=== PATIENT | female | born 1950 | race Caucasian/White ===

== ENCOUNTER 2023-07-12 07:17 | Inpatient (IN) | payer MEDICARE ==
--- NOTE | 2023-07-12 07:56 | ED ---
General Adult HPI - General Chief complaint: Shortness of Breath Stated complaint: SOB Time Seen by Provider: 07/12/23 07:19 Source: patient, EMS Mode of arrival: EMS Limitations: no limitations - History of Present Illness Initial comments: Dictation was produced using Sqwiggle dictation software. please excuse any grammatical, word or spelling errors. Chief Complaint: 60-year-old female with dyspnea History of Present Illness: Patient is a 60-year-old female she has past medical history of A-fib, COPD hypertension. Patient went to bed in her usual state of health last night. She woke up at 2 in the morning with significant dyspnea. States that she has history of COPD. She denies any coughing runny nose or sore throat. Denies any obvious sick contacts. Patient denies any swelling of her legs. She is to take Lasix. She does not take Lasix anymore. She does not put any history of heart failure. She takes multiple cardiac medications. Patient is also on anticoagulation medication for paroxysmal A-fib. The ROS documented in this emergency department record has been reviewed and confirmed by me. Those systems with pertinent positive or negative responses have been documented in the HPI. All other systems are other negative and/or noncontributory. - Related Data Allergies Allergy/AdvReac Type Severity Reaction Status Date / Time No Known Allergies Allergy Verified 07/12/23 07:48 Review of Systems ROS Statement: Those systems with pertinent positive or pertinent negative responses have been documented in the HPI. ROS Other: All systems not noted in ROS Statement are negative. Past Medical History Past Medical History: Atrial Fibrillation, COPD, Hypertension History of Any Multi-Drug Resistant Organisms: None Reported Past Surgical History: Breast Surgery, Cholecystectomy, Hysterectomy Additional Past Surgical History / Comment(s): Breast biopsy Past Psychological History: No Psychological Hx Reported Smoking Status: Former smoker Past Alcohol Use History: Occasional Past Drug Use History: None Reported General Exam - General Exam Comments Initial Comments: PHYSICAL EXAM: General Impression: Alert and oriented x3, not in acute distress HEENT: Normocephalic atraumatic, extra-ocular movements intact, pupils equal and reactive to light bilaterally, mucous membranes moist. Cardiovascular: Heart regular rate and rhythm Chest: Able to complete full sentences, no retractions, no tachypnea, clear to auscultation bilaterally Abdomen: abdomen soft, non-tender, non-distended, no organomegaly Musculoskeletal: Pulses present and equal in all extremities, no peripheral edema Motor: no focal deficits noted Neurological: CN II-XII grossly intact, no focal motor or sensory deficits noted Skin: Intact with no visualized rashes Psych: Normal affect and mood Limitations: no limitations Course Vital Signs 07/12/23 07/12/23 07/12/23 07:32 07:38 08:11 Temperature 98.4 F Pulse Rate 55 L 44 L Respiratory 18 20 20 Rate Blood Pressure 205/85 204/87 O2 Sat by Pulse 94 L 94 L Oximetry 07/12/23 09:27 Temperature Pulse Rate 62 Respiratory 18 Rate Blood Pressure 151/134 O2 Sat by Pulse 92 L Oximetry EKG Findings - EKG Comments: EKG Findings:: My EKG interpretation: Ventricular rate 43, sinus bradycardia,. 176, cures 93, QTc 432. No SC prolongation, no QTC prolongation, no ST or T-wave changes noted. Overall this EKG shows bradycardia Medical Decision Making - Medical Decision Making Was pt. sent in by a medical professional or institution (, PA, MARKETING COMMUNICATION MANAGER, urgent care, hospital, or residential...) When possible be specific @ -No Did you speak to anyone other than the patient for history (EMS, parent, family, police, friend...)? What history was obtained from this source @ -No Did you review nursing and triage notes (agree or disagree)? Why? @ -I reviewed and agree with nursing and triage notes Were old charts reviewed (outside hosp., previous admission, EMS record, old EKG, old radiological studies, urgent care reports/EKG's, residential records)? Report findings @ -No old charts were reviewed Differential Diagnosis (chest pain, altered mental status, abdominal pain women, abdominal pain men, vaginal bleeding, musculoskeletal, weakness, fever, dyspnea, syncope, headache, dizziness, GI bleed, back pain, seizure, CVA, palpatations, mental health)? @ -Differential Dyspnea: Coronary syndrome, arrhythmia, tamponade, asthma, COPD, pulmonary embolism, pneumonia, pneumothorax, pulmonary effusion, anaphylaxis, diabetic ketoacidosis, flailed chest, pulmonary contusion, diaphragmatic rupture, anemia, neuromuscular, this is not meant to be an all-inclusive list. EKG interpreted by me (3pts min.). @ -See above X-rays interpreted by me (1pt min.). @ -X-ray of the chest shows pulmonary vascular congestion CT interpreted by me (1pt min.). @ -None done U/S interpreted by me (1pt. min.). @ -None done What testing was considered but not performed or refused? (CT, X-rays, U/S, labs)? Why? @ -None What meds were considered but not given or refused? Why? @ -None Did you discuss the management of the patient with other professionals (professionals i.e. , PA, MARKETING COMMUNICATION MANAGER, lab, RT, psych nurse, director social, polisher sand, teacher, project control officer, manager case)? Give summary @ -Case discussed with hospitalist for admission Was smoking cessation discussed for >3mins.? @ -No Was critical care preformed (if so, how long)? @ -No Were there social determinants of health that impacted care today? How? (Homelessness, low income, unemployed, alcoholism, drug addiction, transportation, low edu. Level, literacy, decrease access to med. care, longterm, rehab)? @ -No Was there de-escalation of care discussed even if they declined (Discuss DNR or withdrawal of care, Hospice)? DNR status @ -No What co-morbidities impacted this encounter? (DM, HTN, Smoking, COPD, CAD, Cancer, CVA, ARF, Chemo, Hep., AIDS, mental health diagnosis, sleep apnea, morbid obesity)? @ -None Was patient admitted / discharged? Hospital course, mention meds given and route, prescriptions, significant lab abnormalities, going to OR and other pertinent info. @ -72-year-old female presents emergency department for chief complaint of dyspnea. Symptoms are acute. Vital signs shows bradycardia 55, O2 sat of 94. She is hypertensive 205/85. She has evidence of pulmonary vascular congestion on her x-ray. Patient given s nitroglycerin. She is also given 40 mg of IV Lasix. Patient be admitted with consultation to cardiology Undiagnosed new problem with uncertain prognosis? @ -No Drug Therapy requiring intensive monitoring for toxicity (Heparin, Nitro, Insulin, Cardizem)? @ -No Were any procedures done? @ -No Diagnosis/symptom? Acute, or Chronic, or Acute on Chronic? Uncomplicated (without systemic symptoms) or Complicated (systemic symptoms)? @ -Congestive heart failure, bradycardia Side effects of treatment? @ -No Exacerbation, Progression, or Severe Exacerbation? @ -No Poses a threat to life or bodily function? How? (Chest pain, [place], [place], pneumonia, PE, COPD, DKA, ARF, appy, cholecystitis, CVA, Diverticulitis, Homicidal, Suicidal, threat to staff... and all critical care pts) @ -yes - Lab Data Result diagrams: 07/12/23 07:58 07/12/23 07:58 Lab Results 07/12/23 07/12/23 07/12/23 Range/Units 07:58 07:58 07:58 WBC 4.1 (3.8-10.6) k/uL RBC 3.82 (3.80-5.40) m/uL Hgb 12.1 (11.4-16.0) gm/dL Hct 36.4 (34.0-46.0) % MCV 95.2 (80.0-100.0) fL MCH 31.6 (25.0-35.0) pg MCHC 33.2 (31.0-37.0) g/dL RDW 13.8 (11.5-15.5) % Plt Count 136 L (150-450) k/uL MPV 11.1 Neutrophils % 72 % Lymphocytes % 17 % Monocytes % 8 % Eosinophils % 1 % Basophils % 0 % Neutrophils # 2.9 (1.3-7.7) k/uL Lymphocytes # 0.7 L (1.0-4.8) k/uL Monocytes # 0.3 (0-1.0) k/uL Eosinophils # 0.1 (0-0.7) k/uL Basophils # 0.0 (0-0.2) k/uL PT 10.5 (10.0-12.5) sec INR 0.9 (<1.2) APTT 23.5 (22.0-30.0) sec Sodium 140 (137-145) mmol/L Potassium 4.0 (3.5-5.1) mmol/L Chloride 109 H (98-107) mmol/L Carbon Dioxide 25 (22-30) mmol/L Anion Gap 6 mmol/L BUN 14 (7-17) mg/dL Creatinine 0.64 (0.52-1.04) mg/dL Est GFR (CKD-EPI)AfAm >90 (>60 ml/min/1.73 sqM) Est GFR (CKD-EPI)NonAf >90 (>60 ml/min/1.73 sqM) Glucose 128 H (74-99) mg/dL Plasma Lactic Acid Isidro (0.7-2.0) mmol/L Calcium 8.7 (8.4-10.2) mg/dL Magnesium 1.8 (1.6-2.3) mg/dL Troponin I (0.000-0.034) ng/mL 07/12/23 07/12/23 Range/Units 07:58 07:58 WBC (3.8-10.6) k/uL RBC (3.80-5.40) m/uL Hgb (11.4-16.0) gm/dL Hct (34.0-46.0) % MCV (80.0-100.0) fL MCH (25.0-35.0) pg MCHC (31.0-37.0) g/dL RDW (11.5-15.5) % Plt Count (150-450) k/uL MPV Neutrophils % % Lymphocytes % % Monocytes % % Eosinophils % % Basophils % % Neutrophils # (1.3-7.7) k/uL Lymphocytes # (1.0-4.8) k/uL Monocytes # (0-1.0) k/uL Eosinophils # (0-0.7) k/uL Basophils # (0-0.2) k/uL PT (10.0-12.5) sec INR (<1.2) APTT (22.0-30.0) sec Sodium (137-145) mmol/L Potassium (3.5-5.1) mmol/L Chloride (98-107) mmol/L Carbon Dioxide (22-30) mmol/L Anion Gap mmol/L BUN (7-17) mg/dL Creatinine (0.52-1.04) mg/dL Est GFR (CKD-EPI)AfAm (>60 ml/min/1.73 sqM) Est GFR (CKD-EPI)NonAf (>60 ml/min/1.73 sqM) Glucose (74-99) mg/dL Plasma Lactic Acid Isidro 1.2 (0.7-2.0) mmol/L Calcium (8.4-10.2) mg/dL Magnesium (1.6-2.3) mg/dL Troponin I <0.012 (0.000-0.034) ng/mL Disposition Clinical Impression: Congestive heart failure Disposition: ADMITTED IP TO THIS HOSP Condition: Fair Referrals: Fernando Escobedo MD [Primary Care Provider] - 1-2 days Decision Time: 09:31
[2023-07-12 08:19] LABS: African American GFR (CKD) >90 (>60 ml/min/1.73 sqM); Anion Gap 6 mmol/L; Blood Urea Nitrogen 14 mg/dL (7-17); Calcium 8.7 mg/dL (8.4-10.2); Carbon Dioxide 25 mmol/L (22-30); Chloride 109 mmol/L (98-107); Glucose 128 mg/dL (74-99); Magnesium 1.8 mg/dL (1.6-2.3); Non-African American GFR(CKD) >90 (>60 ml/min/1.73 sqM); Sodium 140 mmol/L (137-145)
[2023-07-12 08:24] LABS: Basophils % (A) 0 %; Eosinophils # (A) 0.1 k/uL (0-0.7); Eosinophils % (A) 1 %; HCT 36.4 % (34.0-46.0); HGB 12.1 gm/dL (11.4-16.0); Lymphocytes # (A) 0.7 k/uL (1.0-4.8); Lymphocytes % (A) 17 %; MCH 31.6 pg (25.0-35.0); MCHC 33.2 g/dL (31.0-37.0); MCV 95.2 fL (80.0-100.0); Mean Platelet Volume 11.1; Monocytes # (A) 0.3 k/uL (0-1.0); Monocytes % (A) 8 %; Neutrophils # (A) 2.9 k/uL (1.3-7.7); Neutrophils % (A) 72 %; Platelet Count 136 k/uL (150-450); RBC 3.82 m/uL (3.80-5.40); RDW 13.8 % (11.5-15.5); WBC 4.1 k/uL (3.8-10.6)
[2023-07-12 08:29] LABS: INR 0.9 (<1.2); Partial Thromboplastin Time 23.5 sec (22.0-30.0); Prothrombin Time 10.5 sec (10.0-12.5)
--- NOTE | 2023-07-12 08:49 | XR ---
EXAMINATION TYPE: XR chest 2V DATE OF EXAM: 07/12/2023 COMPARISON: None INDICATION: Dyspnea short of breath TECHNIQUE: Frontal and lateral views of the chest are obtained. FINDINGS: The heart size is normal. The pulmonary vasculature is somewhat prominent. Diffuse increased central lung markings are present. Increased scattered lung markings are through th e lung bases. Clinical consideration for pulmonary edema and volume overload is recommended. IMPRESSION: 1. Scattered increased lung markings with some prominence of pulmonary vascular markings. Consider vo lume overload. Follow-up is recommended.
[2023-07-12] MEDS ORDERED: NALOXONE 0.4 MG/ML 1 ML VIAL IV PRN (09:20)
[2023-07-12] MEDS: NITROGLYCERIN SL TABS 0.4 MG TAB SUBLINGUAL STA (09:25)
[2023-07-12] MEDS: FUROSEMIDE 10 MG/ML 4 ML VIAL IV STA (09:37)
[2023-07-12] MEDS: APIXABAN 5 MG TAB PO SCH (13:21)
[2023-07-12] MEDS: lisinopriL 20 MG TAB PO SCH (13:21)
[2023-07-12] MEDS: ASPIRIN 81 MG PO SCH (13:21)
[2023-07-12] MEDS: METOPROLOL SUCCINATE (ER) 50 MG TAB.ER.24H PO SCH (13:22)
--- NOTE | 2023-07-12 14:12 | P.CRDCN ---
History of Present Illness History of present illness: HISTORY OF PRESENT ILLNESS: This is a 72-year-old female with a past medical history significant for atrial fibrillation, hypertension, COPD, former nicotine dependence, and cardioversion x 2. Patient follows with a networks software consultant out of [place] but is unable to recall her name at the time of evaluation. We have been asked to see the patient in consultation for tachycardia and shortness of breath. Patient examined at the bedside in the emergency room. Patient states yesterday around 3:00 in the morning she began to feel short of breath. She states her shortness of breath felt similar to when she had issues with atrial fibrillation. She also reports feeling more tired recently. She denied any chest pain or pressure. She denied any worsening lower extremity edema. She denies waking up in the middle of the night with shortness of breath. She denies any dizziness or syncope. Patient was found to have significantly elevated blood pressures upon admission. She states that she checks her blood pressure at home and it is usually in the 130s. She states that she does know what her heart rate usually runs. Patient was found to be in sinus mechanism with a heart rate in the 50s. She is prescribed metoprolol succinate 100 mg on an outpatient basis. Patient denies any history of congestive heart failure, coronary artery disease, or cardiomyopathy to her knowledge. She states that she underwent a stress test last year which was normal to her recollection. DIAGNOSTICS: - EKG reveals sinus bradycardia with no signs of acute ischemia - Chest xray scattered increased lung markings with some prominence of pulmonary vascular markings. Consider fluid overload. - Laboratory data: WBC 4.1. Hemoglobin 12.1. Platelet count 136. Sodium 140. Potassium 4.0. BUN 14. Creatinine 0.64. Lactic acid 1.2. Troponin negative x 1. proBNP 981. - Current home cardiac medications include lisinopril 20 mg twice a day, Lasix 20 mg daily, aspirin 81 mg daily, metoprolol succinate 100 mg daily, and Eliquis 5 mg twice a day REVIEW OF SYSTEMS: At the time of my exam: CONSTITUTIONAL: Denies fever or chills. HEENT: Denies blurred vision, vision changes, or eye pain. Denies hemoptysis CARDIOVASCULAR: Denies chest pain. Denies orthopnea. Denies PND. Denies palpitat ions RESPIRATORY: Denies shortness of breath. GASTROINTESTINAL: Denies abdominal pain. Denies nausea or vomiting. HEMATOLOGIC: Denies bleeding disorders. GENITOURINARY: Denies any blood in urine. SKIN: Denies pruitis. Denies rash. PHYSICAL EXAM: VITAL SIGNS: Reviewed. GENERAL: Well-developed in no acute distress. HEENT: Head is normocephalic. Pupils are equal, round. Sclerae anicteric. Mucous membranes of the mouth are moist. Neck supple. No JVD or thyromegaly LUNGS: Respirations even and unlabored. Lungs essentially clear to auscultation bilaterally. HEART: Bradycardic. Regular rate and rhythm. S1 and S2 heard. ABDOMEN: Soft. Nondistended. Nontender. EXTREMITIES: Normal range of motion. No clubbing or cyanosis. Peripheral pulses intact. Trace bilateral lower extremity edema NEUROLOGIC: Awake and alert. Oriented x 3. ASSESSMENT: Shortness of breath Acute heart failure, suspect with preserved EF, echo pending Sinus bradycardia Paroxysmal atrial fibrillation Hypertension COPD History of cardioversion x 2, Former nicotine dependence, patient quit smoking in 2004 Obesity: BMI 34.0 PLAN: Obtain 2D echo to assess cardiac structure and function Resume home cardiac medications Continue metoprolol but decrease dose to 50 mg daily Continue telemetry monitoring Add Lasix IV 40 mg twice a day Daily weights, accurate intake and output, and monitoring of kidney function Will consider addition of Farxiga tomorrow Obtain records from patient's primary networks software consultant out of [facility] Further recommendations pending patient course Nurse practitioner note has been reviewed by physician. Signing provider agrees with the documented findings, assessment, and plan of care documented by VERTICAL MILL OPERATOR as a scribe. Past Medical History Past Medical History: Atrial Fibrillation, COPD, Hypertension History of Any Multi-Drug Resistant Organisms: None Reported Past Surgical History: Breast Surgery, Cholecystectomy, Hysterectomy Additional Past Surgical History / Comment(s): Breast biopsy Past Psychological History: No Psychological Hx Reported Smoking Status: Former smoker Past Alcohol Use History: Occasional Past Drug Use History: None Reported Medications and Allergies Home Medications Medication Instructions Recorded Confirmed Type Apixaban [Eliquis] 5 mg PO BID 07/12/23 07/12/23 History Aspirin EC [Ecotrin Low Dose] 81 mg PO DAILY 07/12/23 07/12/23 History Cholecalciferol [Vitamin D3 (25 25 mcg PO DAILY 07/12/23 07/12/23 History Mcg = 1000 Iu)] Famotidine [Pepcid] 20 mg PO BID 07/12/23 07/12/23 History Fluticasone/Umeclidin/Vilanter 1 puff INHALATION RT-DAILY 07/12/23 07/12/23 History [Trelegy Ellipta 100-62.5-25] Furosemide [Lasix] 20 mg PO DAILY 07/12/23 07/12/23 History Metoprolol Succinate (ER) [Toprol 100 mg PO DAILY 07/12/23 07/12/23 History Xl] Milk Thistle 150 mg PO DAILY 07/12/23 07/12/23 History Pantoprazole [Protonix] 40 mg PO DAILY 07/12/23 07/12/23 History Sertraline [Zoloft] 200 mg PO DAILY 07/12/23 07/12/23 History lisinopriL [Zestril] 20 mg PO BID 07/12/23 07/12/23 History Allergies Allergy/AdvReac Type Severity Reaction Status Date / Time No Known Allergies Allergy Verified 07/12/23 10:39 Physical Exam Vitals: Vital Signs Temp Pulse Resp BP Pulse Ox 07/12/23 10:43 46 L 18 159/83 94 L 07/12/23 09:27 62 18 151/134 92 L 07/12/23 08:11 44 L 20 204/87 94 L 07/12/23 07:38 20 07/12/23 07:32 98.4 F 55 L 18 205/85 94 L Intake and Output 07/11/23 07/12/23 07/12/23 22:59 06:59 14:59 Intake Total 355 Output Total 1300 Balance -945 Intake: Oral 355 Output: Urine 1300 Other: Weight 104.326 kg Results 07/12/23 07:58 07/12/23 07:58 Cardiac Enzymes 07/12/23 Range/Units 07:58 Troponin I <0.012 (0.000-0.034) ng/mL Coagulation 07/12/23 Range/Units 07:58 PT 10.5 (10.0-12.5) sec APTT 23.5 (22.0-30.0) sec CBC 07/12/23 Range/Units 07:58 WBC 4.1 (3.8-10.6) k/uL RBC 3.82 (3.80-5.40) m/uL Hgb 12.1 (11.4-16.0) gm/dL Hct 36.4 (34.0-46.0) % Plt Count 136 L (150-450) k/uL Comprehensive Metabolic Panel 07/12/23 Range/Units 07:58 Sodium 140 (137-145) mmol/L Potassium 4.0 (3.5-5.1) mmol/L Chloride 109 H (98-107) mmol/L Carbon Dioxide 25 (22-30) mmol/L BUN 14 (7-17) mg/dL Creatinine 0.64 (0.52-1.04) mg/dL Glucose 128 H (74-99) mg/dL Calcium 8.7 (8.4-10.2) mg/dL Current Medications Generic Name Dose Route Start Last Admin Trade Name Freq PRN Reason Stop Dose Admin Naloxone HCl 0.2 mg 07/12/23 09:20 Naloxone 0.4 Mg/Ml 1 Ml Vial IV Q2M PRN Opioid Reversal Intake and Output 07/11/23 07/12/23 07/12/23 22:59 06:59 14:59 Intake Total 355 Output Total 1300 Balance -945 Intake: Oral 355 Output: Urine 1300 Other: Weight 104.326 kg Patient Weight 07/13/23 06:59 Weight 104.326 kg 07/12/23 07:58 07/12/23 07:58
--- NOTE | 2023-07-12 17:20 | P.HPIM ---
History of Present Illness H&P Date: 07/12/23 Patient is a 72-year-old female with history of hypertension, COPD, atrial fibrillation presenting with shortness of breath. She claims that she has been having shortness of breath and orthopnea for almost a month. Most of her dyspnea is with exertion. She has not noticed any increase swelling in her legs. She does use 1 pillow at night as well as tries to lift her legs up at night. She denies any chest pain, palpitations, abdominal pain, nausea, vomiting, urinary or bowel complaints. She denies any fevers or chills, cough, recent travel history or sick contacts. She denies any smoking, occasional alcohol use, denies any illicit drug use. In the ED, temperature was 98.4, pulse 55, respiratory rate 18, blood pressure 205/85, saturating at 94% on room air. WBC 4.1, hemoglobin 12, platelet 136. Potassium 4, creatinine 0.64, lactate 1.2, troponin negative, proBNP 991. Chest x-ray independently interpreted, shows interstitial opacities. EKG independently interpreted, shows sinus bradycardia. Patient admitted for CHF exacerbation. Cardiology consulted. Pertinent positives and negatives as discussed in HPI, a complete review of systems was performed and all other systems are negative. Patient seen and examined at bedside. Vital signs reviewed General: nontoxic, no distress, appears at stated age, morbidly obese Derm: warm, dry Head: atraumatic, normocephalic, symmetric Eyes: EOMI, no lid lag, anicteric sclera, pupils equal round reactive to light ENT: Nose and ears atraumatic Neck: No thyromegaly, supple Mouth: no lip lesion, mucus membranes moist Cardiovascular: S1S2 reg, no murmur, no edema Lungs: Bilateral rales, no wheeze, no accessory muscle use Abdominal: soft, nontender to palpation, no guarding, no appreciable organomegaly Ext: no gross muscle atrophy, muscle strength muscle strength 5 out of 5 in all 4 extremities, no contractures Neuro: CN II-XII grossly intact Psych: Alert, oriented, appropriate affect Assessment/Plan: Active: Acute CHF exacerbation, unknown EF Hypertension, uncontrolled Sinus bradycardia - Cardiology note reviewed, echocardiogram pending, metoprolol dose decreased to 50 daily - Continue Lasix IV 40 twice daily, monitor renal function and electrolytes - Continue telemetry monitoring - On lisinopril 20 twice daily, room to go up on lisinopril -Intake and output, daily weight Chronic: Paroxysmal atrial fibrillation Depression COPD, not in exacerbation GERD The patient is admitted with an anticipated greater than 2 midnight stay as inpatient status for evaluation of CHF exacerbation. Surrogate decision-maker: Sibling CODE STATUS: Full code DVT prophylaxis: Eliquis Anticipated discharge date: Pending clinical course Anticipated discharge place: Pending clinical course A total of 55 minutes was spent on the care of this complex patient more than 50% of the time was spent in counseling and care coordination. Past Medical History Past Medical History: Atrial Fibrillation, COPD, Hypertension History of Any Multi-Drug Resistant Organisms: None Reported Past Surgical History: Breast Surgery, Cholecystectomy, Hysterectomy Additional Past Surgical History / Comment(s): Breast biopsy Past Psychological History: No Psychological Hx Reported Smoking Status: Former smoker Past Alcohol Use History: Occasional Past Drug Use History: None Reported Medications and Allergies Home Medications Medication Instructions Recorded Confirmed Type Apixaban [Eliquis] 5 mg PO BID 07/12/23 07/12/23 History Aspirin EC [Ecotrin Low Dose] 81 mg PO DAILY 07/12/23 07/12/23 History Cholecalciferol [Vitamin D3 (25 25 mcg PO DAILY 07/12/23 07/12/23 History Mcg = 1000 Iu)] Famotidine [Pepcid] 20 mg PO BID 07/12/23 07/12/23 History Fluticasone/Umeclidin/Vilanter 1 puff INHALATION RT-DAILY 07/12/23 07/12/23 History [Trelegy Ellipta 100-62.5-25] Furosemide [Lasix] 20 mg PO DAILY 07/12/23 07/12/23 History Metoprolol Succinate (ER) [Toprol 100 mg PO DAILY 07/12/23 07/12/23 History Xl] Milk Thistle 150 mg PO DAILY 07/12/23 07/12/23 History Pantoprazole [Protonix] 40 mg PO DAILY 07/12/23 07/12/23 History Sertraline [Zoloft] 200 mg PO DAILY 07/12/23 07/12/23 History lisinopriL [Zestril] 20 mg PO BID 07/12/23 07/12/23 History Allergies Allergy/AdvReac Type Severity Reaction Status Date / Time No Known Allergies Allergy Verified 07/12/23 10:39 Physical Exam Vitals: Vital Signs Temp Pulse Resp BP Pulse Ox 07/12/23 15:00 48 L 20 191/162 94 L 07/12/23 14:00 48 L 18 190/88 91 L 07/12/23 13:18 47 L 18 190/88 98 07/12/23 13:00 45 L 18 96 07/12/23 12:00 45 L 18 167/78 92 L 07/12/23 11:00 52 L 20 155/78 94 L 07/12/23 10:43 46 L 18 159/83 94 L 07/12/23 10:00 52 L 20 159/83 95 07/12/23 09:27 66 18 151/134 92 L 07/12/23 08:11 44 L 20 204/87 94 L 07/12/23 07:38 20 07/12/23 07:32 98.4 F 55 L 18 205/85 94 L Intake and Output 07/12/23 07/12/23 07/12/23 06:59 14:59 22:59 Intake Total 355 Output Total 1300 Balance -945 Intake: Oral 355 Output: Urine 1300 Other: Weight 104.326 kg Results CBC & Chem 7: 07/12/23 07:58 07/12/23 07:58 Labs: Abnormal Lab Results - Last 24 Hours (Table) 07/12/23 07/12/23 Range/Units 07:58 07:58 Plt Count 136 L (150-450) k/uL Lymphocytes # 0.7 L (1.0-4.8) k/uL Chloride 109 H (98-107) mmol/L Glucose 128 H (74-99) mg/dL
[2023-07-12] MEDS: FAMOTIDINE 20 MG TAB PO SCH (21:07)
[2023-07-12] MEDS: FUROSEMIDE 10 MG/ML 4 ML VIAL IV SCH (21:09)
--- NOTE | 2023-07-13 07:17 | CA ---
Transthoracic Echo Report Name: Lynn Mars Age: 72 Gender: F : 1950 Exam Date: 07/12/2023 14:59 Exam Location: [facility] Ht (in): 69 Wt (lb): 230 Ordering Physician: Carly Pereyra Attending/Referring Phys: [id number], Roddy Envelope Sealing Machine Operator Giselle Perera RDCS Procedure CPT: Indications: LV function, poss CHF, AF Cardiac Hx: Technical Quality: Technically difficult study Contrast 1: Definity Total Dose (mL): 2 Contrast 2: Total Dose (mL): MEASUREMENTS (Male / Female) Normal Values 2D ECHO LVOT Diameter 2.6 cm Aortic Root Diameter 3.0 cm LV Diastolic Volume MOD BP 107.2 cm??? 67 - 155 / 56 - 104 cm??? LV Systolic Volume MOD BP 35.8 cm??? 22 - 58 / 19 - 49 cm??? LV Ejection Fraction MOD BP 66.6 % >= 55 % LV Cardiac Index MOD BP 1496.5 cm???/min???m??? LV Diastolic Volume MOD 4C 108.0 cm??? LV Systolic Volume MOD 4C 32.9 cm??? LV Ejection Fraction MOD 4C 69.6 % LV Cardiac Index MOD 4C 1575.1 cm???/min???m??? LV Diastolic Length 4C 8.3 cm LV Systolic Length 4C 6.6 cm LV Diastolic Volume MOD 2C 107.4 cm??? LV Systolic Volume MOD 2C 37.2 cm??? LV Ejection Fraction MOD 2C 65.3 % LV Cardiac Index MOD 2C 1470.5 cm???/min???m??? LV Diastolic Length 2C 8.4 cm LV Systolic Length 2C 7.0 cm DOPPLER AV Peak Velocity 162.3 cm/s AV Peak Gradient 10.5 mmHg AV Mean Velocity 96.5 cm/s AV Mean Gradient 4.3 mmHg AV Velocity Time Integral 35.4 cm LVOT Peak Velocity 136.0 cm/s LVOT Peak Gradient 7.4 mmHg LVOT Velocity Time Integral 29.6 cm LVOT Stroke Volume 153.7 cm??? LVOT Stroke Volume Index 70.1 ml/m??? LVOT Cardiac Index 3221.8 cm???/min???m??? AV Area Cont Eq vti 4.3 cm??? AV Area Cont Eq pk 4.4 cm??? Mitral E Point Velocity 68.7 cm/s Mitral A Point Velocity 61.2 cm/s Mitral E to A Ratio 1.1 MV Deceleration Time 339.1 ms MV E' Velocity 4.9 cm/s Mitral E to MV E' Ratio 13.9 FINDINGS Left Ventricle Left ventricular ejection fraction is estimated at 60-65 %. Mildly increased left ventricular diastolic volume. No obvious regional wall motion abnormalities. Right Ventricle Right ventricle not well visualized. Unable to estimate the right ventricular systolic pressure. Right Atrium Right atrium not well visualized. Left Atrium Mild left atrial dilatation. Mitral Valve Structurally normal mitral valve. No evidence for mitral valve prolapse. No mitral stenosis. Trace mitral regurgitation. Aortic Valve Aortic valve not well visualized. No aortic valve stenosis or regurgitation. Tricuspid Valve Structurally normal tricuspid valve. No tricuspid stenosis. No tricuspid regurgitation. Pulmonic Valve Pulmonic valve not well visualized. No pulmonic stenosis. No pulmonic regurgitation. Pericardium No pericardial effusion. Aorta Aortic root and proximal ascending aorta not well visualized. CONCLUSIONS Technically difficult study for interpretation Normal LV systolic function Previewed by: Dr. Librado Troncoso MD (Electronically Signed) Final Date: 13 Jul 2023 07:16
[2023-07-13] MEDS: SYMBICORT 80-4.5 MCG INHALER INHALATION SCH (08:05)
[2023-07-13] MEDS: IPRATROPIUM 0.5 MG/2.5 ML NEBU INHALATION SCH (08:05)
[2023-07-13] MEDS: PANTOPRAZOLE 40 MG TABLET PO SCH (08:10)
[2023-07-13] MEDS: CHOLECALCIFEROL 25 MCG (1000 IU) TABLET PO SCH (08:11)
[2023-07-13] MEDS: SERTRALINE 100 MG TAB PO SCH (08:12)
[2023-07-13 08:26] LABS: African American GFR (CKD) >90 (>60 ml/min/1.73 sqM); Anion Gap 6 mmol/L; Blood Urea Nitrogen 14 mg/dL (7-17); Calcium 9.3 mg/dL (8.4-10.2); Carbon Dioxide 32 mmol/L (22-30); Chloride 103 mmol/L (98-107); Glucose 107 mg/dL (74-99); Non-African American GFR(CKD) 78 (>60 ml/min/1.73 sqM); Potassium 4.1 mmol/L (3.5-5.1); Sodium 141 mmol/L (137-145)
[2023-07-13] MEDS: FUROSEMIDE 40 MG TAB PO SCH (08:28)
[2023-07-13] MEDS: hydrALAZINE HCL 25 MG TAB PO SCH (08:58)
[2023-07-13] MEDS: DAPAGLIFLOZIN PROPANEDIOL 10 MG TABLET PO SCH (08:58)
[2023-07-13 09:15] LABS: HCT 41.5 % (34.0-46.0); HGB 13.6 gm/dL (11.4-16.0); MCH 31.8 pg (25.0-35.0); MCHC 32.7 g/dL (31.0-37.0); MCV 97.4 fL (80.0-100.0); Mean Platelet Volume 11.1; Platelet Count 152 k/uL (150-450); RBC 4.26 m/uL (3.80-5.40); RDW 13.7 % (11.5-15.5); WBC 4.5 k/uL (3.8-10.6)
--- NOTE | 2023-07-13 09:57 | P.PN ---
Subjective HISTORY OF PRESENT ILLNESS: This is a 72-year-old female with a past medical history significant for atrial fibrillation, hypertension, COPD, former nicotine dependence, and cardioversion x 2. Patient follows with a logging equipment mechanic out of [place] but is unable to recall her name at the time of evaluation. We have been asked to see the patient in consultation for tachycardia and shortness of breath. Patient examined at the bedside in the emergency room. Patient states yesterday around 3:00 in the morning she began to feel short of breath. She states her shortness of breath felt similar to when she had issues with atrial fibrillation. She also reports feeling more tired recently. She denied any chest pain or pressure. She denied any worsening lower extremity edema. She denies waking up in the middle of the night with shortness of breath. She denies any dizziness or syncope. Patient was found to have significantly elevated blood pressures upon admission. She states that she checks her blood pressure at home and it is usually in the 130s. She states that she does know what her heart rate usually runs. Patient was found to be in sinus mechanism with a heart rate in the 50s. She is prescribed metoprolol succinate 100 mg on an outpatient basis. Patient denies any history of congestive heart failure, coronary artery disease, or cardiomyopathy to her knowledge. She states that she underwent a stress test last year which was normal to her recollection. DIAGNOSTICS: - EKG reveals sinus bradycardia with no signs of acute ischemia - Chest xray scattered increased lung markings with some prominence of pulmonary vascular markings. Consider fluid overload. - Laboratory data: WBC 4.1. Hemoglobin 12.1. Platelet count 136. Sodium 140. Potassium 4.0. BUN 14. Creatinine 0.64. Lactic acid 1.2. Troponin negative x 1. proBNP 981. - Current home cardiac medications include lisinopril 20 mg twice a day, Lasix 20 mg daily, aspirin 81 mg daily, metoprolol succinate 100 mg daily, and Eliquis 5 mg twice a day 07/13/2023 Patient examined this morning. Patient remains in the emergency room. Patient states that she is feeling better today. She states that she slept well overnight. She reports improvement in her shortness of breath. She denies any chest pain or pressure. Patient's blood pressure has improved this morning although still slightly elevated. Bedside telemetry reveals sinus bradycardia with heart rate in the 50s. Patient's metoprolol dose was decreased yesterday to 50 mg daily. She denies any dizziness or lightheadedness. Echocardiogram completed revealing ejection fraction 60 to 65%, no obvious regional wall motion abnormalities, and trace MR PHYSICAL EXAM: VITAL SIGNS: Reviewed. GENERAL: Well-developed in no acute distress. HEENT: Head is normocephalic. Pupils are equal, round. Sclerae anicteric. Mucous membranes of the mouth are moist. Neck supple. No JVD or thyromegaly LUNGS: Respirations even and unlabored. Lungs essentially clear to auscultation bilaterally. HEART: Bradycardic. Regular rate and rhythm. S1 and S2 heard. ABDOMEN: Soft. Nondistended. Nontender. EXTREMITIES: Normal range of motion. No clubbing or cyanosis. Peripheral pulses intact. Trace bilateral lower extremity edema NEUROLOGIC: Awake and alert. Oriented x 3. ASSESSMENT: Shortness of breath Acute heart failure with preserved EF, 60 to 65% Sinus bradycardia Paroxysmal atrial fibrillation Hypertension COPD History of cardioversion x 2, Former nicotine dependence, patient quit smoking in 2004 Obesity: BMI 34.0 PLAN: Continue current dose of metoprolol. No indication for PPM at this time. Discontinue IV Lasix. Begin oral Lasix 40 mg daily Add hydralazine 25 mg twice a day for optimal blood pressure control Add Farxiga 10 mg daily Still awaiting records from patient's primary logging equipment mechanic out of [facility] Possible discharge home this afternoon versus tomorrow Further recommendations pending patient course Nurse practitioner note has been reviewed by physician. Signing provider agrees with the documented findings, assessment, and plan of care documented by BILINGUAL BRANCH MANAGER as a scribe. Objective - Vital Signs Vital signs: Vital Signs Temp 97.6 F 07/13/23 08:03 Pulse 45 L 07/13/23 08:03 Resp 16 07/13/23 08:03 BP 176/87 07/13/23 08:03 Pulse Ox 92 L 07/13/23 08:03 FiO2 Intake & Output 07/12/23 07/13/23 07/13/23 18:59 06:59 18:59 Intake Total 355 Output Total 1300 Balance -945 Weight 104.326 kg Intake: Oral 355 Output: Urine 1300 - Labs CBC & Chem 7: 07/13/23 06:42 05/01/24 06:42 Labs: Abnormal Lab Results - Last 24 Hours (Table) 07/13/23 Range/Units 06:42 Carbon Dioxide 32 H (22-30) mmol/L Glucose 107 H (74-99) mg/dL
--- NOTE | 2023-07-13 10:45 | P.PN ---
Subjective Progress Note Date: 07/13/23 Hospital course: Patient is a very pleasant 72-year-old female with a past medical history significant for atrial fibrillation, hypertension, COPD, former nicotine dependence, and cardioversion x 2. She presented to the hospital on 07/12/2023 secondary to shortness of breath. She underwent evaluation in the emergency department vital signs upon arrival show blood pressure 205/85, heart rate 55, respiratory rate 18, temp 98.4 F, and SpO2 of 94% on room air. EKG was completed showing sinus bradycardia at 43 bpm with no significant T wave or ST abnormalities upon personal review and interpretation. Chest x-ray reported scattered increased lung markings with prominence of pulmonary vascular congestion. Labs were completed and reviewed. CBC showing thrombocytopenia with platelet count of 136 otherwise normal findings. Coagulation profile normal findings. BMP revealing mild hyperchloremia with chloride of 109. Lactic acid normal findings at 1.2. Magnesium normal findings at 1.8. Troponin was negative at less than 0.012 and proBNP was 981. TSH normal findings at 2 .550. Patient admitted under our services with consultation to cardiology. Echocardiogram was completed showing a preserved EF of 60 to 65% with no significant valvular or structural abnormalities reported. Physical exam: Vital signs reviewed and stable. General: Nontoxic, no distress and appears stated age. Derm: Skin warm and dry, normal coloration for ethnicity. Head: Atraumatic, normocephalic and symmetric. Eyes: EOMs intact, no lid lag, and anicteric sclera Mouth: no lip lesions, mucus membranes moist Cardiovascular: regular rate and rhythm with normal S1S2, no murmur, positive posterior tibial pulses bilaterally, and cap refill < 2 seconds. Lungs: Respirations even, regular, and unlabored on room air. Lungs CTA bilaterally, no rhonchi, no rales, no wheezing, and no accessory muscle usage. Abdominal: soft, nontender to palpation, no guarding, no appreciable organomegaly Ext: ROM intact. No gross muscle atrophy, no edema, no contractures Neuro: Speech clear, face symmetrical and CN II-XII grossly intact with no noted focal neuro deficits Psych: Alert and oriented to person, place, time, and situation. Appropriate and pleasant affect. Assessment and Plan of Care: Acute diastolic CHF exacerbation Hypertension, uncontrolled Sinus bradycardia Paroxysmal atrial fibrillation - Cardiology following and decreased metoprolol dose to 50 daily and started patient on Farxiga. Awaiting records from primary performance improvement coordinator out of [place] and further recommendations forthcoming. - Echocardiogram was completed showing a preserved EF of 60 to 65% with no significant valvular or structural abnormalities reported. - Continue Lasix IV 40 mg daily, monitor renal function and electrolytes - Continue telemetry monitoring - Continue aspirin 81 mg daily, Eliquis 5 mg twice daily, Farxiga 10 mg daily, Lasix 40 mg daily, hydralazine 25 mg twice daily, lisinopril 20 mg twice daily, and metoprolol 50 mg daily. -Intake and output, daily weight Depression and anxiety Continue Zoloft 200 mg daily. COPD, not in exacerbation Continue Symbicort 80-4.5 mcg inhaler 2 puffs twice daily and Atrovent nebulizers 4 times daily GERD Continue GI prophylaxis with Protonix 40 mg daily. Data and imaging reviewed: Echocardiogram was completed showing a preserved EF of 60 to 65% with no significant valvular or structural abnormalities reported. Morning labs reviewed. CBC and BMP were unremarkable with exception of mild hypercarbia with bicarb of 32. Magnesium normal findings at 2.0. Vital signs reviewed. Blood pressure 176/87, heart rate 45, respiratory rate 16, temp 97.6 F, and SpO2 of 92% on room air. CODE STATUS: Full code DVT prophylaxis: Eliquis Anticipated discharge date: Pending clinical course likely tomorrow Anticipated discharge place: Home Patient was seen independently by Nurse Pracitioner. This document was prepared using [employer] dictation software. Please allow for errors in plastic boat buffer, while rare they do occur. Sreekanth Rincon NP rendered care for this patient independently, reviewed the findings and plan as documented in the note above. I did not physically speak with or examine the patient on this date. Objective - Vital Signs Vital signs: Vital Signs Temp 97.6 F 07/13/23 08:03 Pulse 45 L 07/13/23 08:03 Resp 16 07/13/23 08:03 BP 176/87 07/13/23 08:03 Pulse Ox 92 L 07/13/23 08:03 FiO2 Intake & Output 07/12/23 07/13/23 07/13/23 18:59 06:59 18:59 Intake Total 355 Output Total 1300 Balance -945 Weight 104.326 kg Intake: Oral 355 Output: Urine 1300 - Labs CBC & Chem 7: 07/13/23 06:42 05/01/24 06:42 Labs: Abnormal Lab Results - Last 24 Hours (Table) 07/13/23 Range/Units 06:42 Carbon Dioxide 32 H (22-30) mmol/L Glucose 107 H (74-99) mg/dL
[2023-07-13 13:24] VITALS: RESP 18
[2023-07-14 08:26] LABS: African American GFR (CKD) 71 (>60 ml/min/1.73 sqM); Anion Gap 7 mmol/L; Blood Urea Nitrogen 18 mg/dL (7-17); Calcium 9.3 mg/dL (8.4-10.2); Carbon Dioxide 31 mmol/L (22-30); Chloride 101 mmol/L (98-107); Glucose 111 mg/dL (74-99); Non-African American GFR(CKD) 62 (>60 ml/min/1.73 sqM); Potassium 4.3 mmol/L (3.5-5.1); Sodium 139 mmol/L (137-145)
[2023-07-14 08:38] VITALS: BP 130/75; PULSE 52; TEMP 98.1
--- NOTE | 2023-07-14 11:59 | P.PN ---
Subjective HISTORY OF PRESENT ILLNESS: This is a 72-year-old female with a past medical history significant for atrial fibrillation, hypertension, COPD, former nicotine dependence, and cardioversion x 2. Patient follows with a orthotist out of [place] but is unable to recall her name at the time of evaluation. We have been asked to see the patient in consultation for tachycardia and shortness of breath. Patient examined at the bedside in the emergency room. Patient states yesterday around 3:00 in the morning she began to feel short of breath. She states her shortness of breath felt similar to when she had issues with atrial fibrillation. She also reports feeling more tired recently. She denied any chest pain or pressure. She denied any worsening lower extremity edema. She denies waking up in the middle of the night with shortness of breath. She denies any dizziness or syncope. Patient was found to have significantly elevated blood pressures upon admission. She states that she checks her blood pressure at home and it is usually in the 130s. She states that she does know what her heart rate usually runs. Patient was found to be in sinus mechanism with a heart rate in the 50s. She is prescribed metoprolol succinate 100 mg on an outpatient basis. Patient denies any history of congestive heart failure, coronary artery disease, or cardiomyopathy to her knowledge. She states that she underwent a stress test last year which was normal to her recollection. DIAGNOSTICS: - EKG reveals sinus bradycardia with no signs of acute ischemia - Chest xray scattered increased lung markings with some prominence of pulmonary vascular markings. Consider fluid overload. - Laboratory data: WBC 4.1. Hemoglobin 12.1. Platelet count 136. Sodium 140. Potassium 4.0. BUN 14. Creatinine 0.64. Lactic acid 1.2. Troponin negative x 1. proBNP 981. - Current home cardiac medications include lisinopril 20 mg twice a day, Lasix 20 mg daily, aspirin 81 mg daily, metoprolol succinate 100 mg daily, and Eliquis 5 mg twice a day 07/13/2023 Patient examined this morning. Patient remains in the emergency room. Patient states that she is feeling better today. She states that she slept well overnight. She reports improvement in her shortness of breath. She denies any chest pain or pressure. Patient's blood pressure has improved this morning although still slightly elevated. Bedside telemetry reveals sinus bradycardia with heart rate in the 50s. Patient's metoprolol dose was decreased yesterday to 50 mg daily. She denies any dizziness or lightheadedness. Echocardiogram completed revealing ejection fraction 60 to 65%, no obvious regional wall motion abnormalities, and trace MR 07/14/2023 Patient examined this morning at bedside. Patient denies chest pain or pressure. She denies shortness of breath. Patient remains bradycardic although improved from yesterday. Heart rate currently in the 50s60s. She denies any dizziness or lightheadedness. Vital signs are stable. Most recent blood pressure 130/75. PHYSICAL EXAM: VITAL SIGNS: Reviewed. GENERAL: Well-developed in no acute distress. HEENT: Head is normocephalic. Pupils are equal, round. Sclerae anicteric. Mucous membranes of the mouth are moist. Neck supple. No JVD or thyromegaly LUNGS: Respirations even and unlabored. Lungs essentially clear to auscultation bilaterally. HEART: Bradycardic. Regular rate and rhythm. S1 and S2 heard. ABDOMEN: Soft. Nondistended. Nontender. EXTREMITIES: Normal range of motion. No clubbing or cyanosis. Peripheral pulses intact. Trace bilateral lower extremity edema NEUROLOGIC: Awake and alert. Oriented x 3. ASSESSMENT: Shortness of breath Acute heart failure with preserved EF, 60 to 65% Sinus bradycardia Paroxysmal atrial fibrillation Hypertension COPD History of cardioversion x 2, Former nicotine dependence, patient quit smoking in 2004 Obesity: BMI 34.0 PLAN: Continue current cardiac medications Patient is stable for discharge home today from a cardiac standpoint Patient is to follow-up postdischarge with her primary orthotist out of [place] Nurse practitioner note has been reviewed by physician. Signing provider agrees with the documented findings, assessment, and plan of care documented by DIESEL BUS MECHANIC as a scribe. Objective - Vital Signs Vital signs: Vital Signs Temp 98.1 F 07/14/23 08:00 Pulse 52 L 07/14/23 08:00 Resp 18 07/14/23 08:00 BP 130/75 07/14/23 08:00 Pulse Ox 96 07/14/23 08:00 FiO2 Intake & Output 07/13/23 07/14/23 07/14/23 18:59 06:59 18:59 Intake Total 488 106 6288 Balance 174 334 1501 Weight 148.2 kg Intake: IV 10 Invasive Line 1 10 Oral [phone] Other: Voiding Method Toilet Toilet Toilet # Voids 2 - Labs CBC & Chem 7: 07/13/23 06:42 07/14/23 07:04 Labs: Abnormal Lab Results - Last 24 Hours (Table) 07/14/23 Range/Units 07:04 Carbon Dioxide 31 H (22-30) mmol/L BUN 18 H (7-17) mg/dL Glucose 111 H (74-99) mg/dL
--- NOTE | 2023-07-14 15:54 | P.DS ---
Providers Date of admission: 07/12/23 09:21 Expected date of discharge: 07/14/23 Attending physician: Eder Rothman MD Consults: 07/12/23 08:30 Consult Physician Routine Consulting Provider: Keena Kraus Consult Reason/Comments: bradycardia, dyspnea Do you want consulting provider notified?: Yes Primary care physician: Fernando Escobedo Hospital Course: Acute diastolic CHF exacerbation Hypertension, uncontrolled Sinus bradycardia Paroxysmal atrial fibrillation Depression and anxiety COPD, not in exacerbation GERD Hospital course: Patient is a very pleasant 72-year-old female with a past medical history significant for atrial fibrillation, hypertension, COPD, former nicotine dependence, and cardioversion x 2. She presented to the hospital on 07/12/2023 secondary to shortness of breath. She underwent evaluation in the emergency department vital signs upon arrival show blood pressure 205/85, heart rate 55, respiratory rate 18, temp 98.4 F, and SpO2 of 94% on room air. EKG was completed showing sinus bradycardia at 43 bpm with no significant T wave or ST abnormalities upon personal review and interpretation. Chest x-ray reported scattered increased lung markings with prominence of pulmonary vascular congestion. Labs were completed and reviewed. CBC showing thrombocytopenia with platelet count of 136 otherwise normal findings. Coagulation profile n ormal findings. BMP revealing mild hyperchloremia with chloride of 109. Lactic acid normal findings at 1.2. Magnesium normal findings at 1.8. Troponin was negative at less than 0.012 and proBNP was 981. TSH normal findings at 2.550. Patient admitted under our services with consultation to cardiology. Echocardiogram was completed showing a preserved EF of 60 to 65% with no significant valvular or structural abnormalities reported. Pt improved with diuresis with IV lasix, then was successfully transitioned to PO lasix. Pt discharged home with medication changes as identified in the discharge med rec. She will f/u with PCP and cardiology. I spent 36 min coordinating this discharge Gen: In NAD, non-toxic HEENT: normocephalic, atraumatic, hearing acuity is intant, mucous membranes moist CVS: perfusing all extremities well, no pitting edema, Respiratory: symmetric chest expansion, no accessory muscle use, GI: soft, NTTP, ND, : no suprapubic tenderness, no CVA tenderness MSK/Derm: no rashes, cyanosis Neuro: CN II-XII intact, no motor weakness, Psych: cooperative, euthymic mood, judgment and insight is intact Patient Condition at Discharge: Good Plan - Discharge Summary Discharge Rx Participant: No New Discharge Prescriptions: New Dapagliflozin Propanediol [Farxiga] 10 mg PO DAILY #30 tab Furosemide [Lasix] 40 mg PO DAILY #30 tab Metoprolol Succinate (ER) [Toprol XL] 50 mg PO DAILY #30 tab hydrALAZINE HCL [Apresoline] 25 mg PO BID #60 tab Continue Sertraline [Zoloft] 200 mg PO DAILY Aspirin EC [Ecotrin Low Dose] 81 mg PO DAILY Fluticasone/Umeclidin/Vilanter [Trelegy Ellipta 100-62.5-25] 1 puff INHALATION RT-DAILY lisinopriL [Zestril] 20 mg PO BID Pantoprazole [Protonix] 40 mg PO DAILY Cholecalciferol [Vitamin D3 (25 Mcg = 1000 Iu)] 25 mcg PO DAILY Famotidine [Pepcid] 20 mg PO BID Apixaban [Eliquis] 5 mg PO BID Milk Thistle 150 mg PO DAILY Discontinued Furosemide [Lasix] 20 mg PO DAILY Metoprolol Succinate (ER) [Toprol Xl] 100 mg PO DAILY Discharge Medication List Apixaban [Eliquis] 5 mg PO BID 07/12/23 [History] Aspirin EC [Ecotrin Low Dose] 81 mg PO DAILY 07/12/23 [History] Cholecalciferol [Vitamin D3 (25 Mcg = 1000 Iu)] 25 mcg PO DAILY 07/12/23 [History] Famotidine [Pepcid] 20 mg PO BID 07/12/23 [History] Fluticasone/Umeclidin/Vilanter [Trelegy Ellipta 100-62.5-25] 1 puff INHALATION RT-DAILY 07/12/23 [History] Milk Thistle 150 mg PO DAILY 07/12/23 [History] Pantoprazole [Protonix] 40 mg PO DAILY 07/12/23 [History] Sertraline [Zoloft] 200 mg PO DAILY 07/12/23 [History] lisinopriL [Zestril] 20 mg PO BID 07/12/23 [History] Dapagliflozin Propanediol [Farxiga] 10 mg PO DAILY #30 tab 07/14/23 [Rx] Furosemide [Lasix] 40 mg PO DAILY #30 tab 07/14/23 [Rx] Metoprolol Succinate (ER) [Toprol XL] 50 mg PO DAILY #30 tab 07/14/23 [Rx] hydrALAZINE HCL [Apresoline] 25 mg PO BID #60 tab 07/14/23 [Rx] Follow up Appointment(s)/Referral(s): Librado Troncoso MD [STAFF PHYSICIAN] - 1 Week (Office will call you with an appointment) Fernando Escobedo MD [Primary Care Provider] - 07/15/23 8:45 am Discharge Disposition: HOME SELF-CARE
== END 2023-07-14 15:02 | disposition home or self-care (01) | DRG 291 ==
LOC: EDBD → EC 07:17 → 3NCARDOBS 09:21 → 1SOBS 12:33 → 3SCARD 15:27
PROVIDERS: ADMIT Student in an Organized Health Care Education/Training Program; ATTEND Student in an Organized Health Care Education/Training Program
DX: I11.0 Hypertensive heart disease with heart failure (principal); I50.33 Acute on chronic diastolic (congestive) heart failure; I48.0 Paroxysmal atrial fibrillation; Z79.01 Long term (current) use of anticoagulants; R00.1 Bradycardia, unspecified; F41.9 Anxiety disorder, unspecified; F32.A Depression, unspecified; D69.6 Thrombocytopenia, unspecified; E87.8 Other disorders of electrolyte and fluid balance, not elsewhere classified; E66.9 Obesity, unspecified; Z68.34 Body mass index [BMI] 34.0-34.9, adult; J44.9 Chronic obstructive pulmonary disease, unspecified; Z71.6 Tobacco abuse counseling; F17.210 Nicotine dependence, cigarettes, uncomplicated; Z86.79 Personal history of other diseases of the circulatory system; K21.9 Gastro-esophageal reflux disease without esophagitis; Z79.899 Other long term (current) drug therapy; Z79.82 Long term (current) use of aspirin; Z90.710 Acquired absence of both cervix and uterus
CPT/HCPCS: 36415; 71046; 80048; 83605; 83735; 83880; 84443; 84484; 85025; 85027; 85610; 85730; 93005; 93306; 96374; 96376; 99285